=== PATIENT | male | born 2000 | race Caucasian/White ===

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

== ENCOUNTER 2023-04-06 14:09 | Emergency (ER) | payer MEDICAID, OTHER ==
[~2023-04-06] VITALS: Ht 180.3 cm; Wt 103.0 kg
[~2023-04-06 14:09] MED LIST: CETI10SG1 PO
[2023-04-06 14:11] VITALS: BP 141/101; PULSE 86; RESP 22; TEMP 97; O2SAT 98
[2023-04-06] MEDS ORDERED: LIDOCAINE 5% 1 EA PATCH TP ONE (14:40)
[2023-04-06] MEDS ORDERED: KETOROLAC 30 MG/ML VIAL IM ONE (14:40)
[2023-04-06] MEDS ORDERED: ALBUTEROL SULFATE/IPRATROPIU 3 ML SOL IH ONE (14:40)
[2023-04-06] MEDS ORDERED: LORazepam 1 MG TAB PO ONE (14:40)
[2023-04-06 14:47] VITALS: PULSE 78; RESP 24; O2SAT 99
--- NOTE | 2023-04-06 14:50 | NUR ---
RT AT BS EVALUATING PT, PERFORMING BREATHING TX ON PT.
[2023-04-06 15:45] LABS: BARBITURATE, URINE NEGATIVE ng/ml (NEG <=200); BENZODIAZEPINE, URINE NEGATIVE ng/mL (NEG <=200); CANNABINOID, URINE POSITIVE ng/mL (NEG <=50); COCAINE, URINE NEGATIVE ng/mL (NEG <=300); OPIATE, URINE NEGATIVE ng/mL (NEG <=2000); PHENCYCLIDINE SCREEN,URINE NEGATIVE ng/mL (NEG <=25)
--- NOTE | 2023-04-06 15:46 | NUR ---
AT RE-EVALUATING THE PT. PT STATED, THAT FEELS SO MUCH BETTER AFTER HE RECIEVED HIS BREATHING TREATMENT. DR. GONZALEZ TO CANCEL ALL ORDERS AND DISCHARGE PT HOME.
[2023-04-06] MEDS ORDERED: ATA10 PO (15:48)
[2023-04-06] MEDS ORDERED: ALBU0.0912 INH (15:48)
[2023-04-06 16:12] VITALS: BP 131/77; PULSE 73; RESP 17; TEMP 98.2; O2SAT 97
--- NOTE | 2023-04-06 16:12 | NUR ---
Patient discharged with v/s stable. Written and verbal after care instructions given and explained. Patient alert, oriented and verbalized understanding of instructions. Ambulatory with steady gait. All questions addressed prior to discharge. ID band removed. Patient advised to follow up with PMD. Rx of Albuterol and Atarax given. Patient educated on indication of medication including possible reaction and side effects. Opportunity to ask questions provided and answered. Pt instructed to return to the ER if his asthma/SOB starts to worsen or to call 911 for an emergency.
== END 2023-04-06 16:12 | disposition home or self-care (01) ==
LOC: MED 14:09
DX: R07.89 Other chest pain (principal); R06.02 Shortness of breath; J45.909 Unspecified asthma, uncomplicated; Z79.899 Other long term (current) drug therapy
CPT/HCPCS: 71045; 80305; 93005; 94640; 99285

== ENCOUNTER 2023-04-09 13:55 | Emergency (ER) | payer OTHER ==
[~2023-04-09 13:55] MED LIST changes: +ALBU0.0912 INH; +ATA10 PO
--- NOTE | 2023-04-09 14:16 | NUR ---
CALLED X 2. NO ANSWER.
--- NOTE | 2023-04-09 14:51 | NUR ---
AWAITED TO SEE IF PT WOULD RETURN. CALLED NUMEROUS TIMES.
== END 2023-04-09 14:16 | disposition left against medical advice (07) ==
LOC: MED 13:55
DX: R06.02 Shortness of breath (principal); Z53.21 Procedure and treatment not carried out due to patient leaving prior to being seen by health care provider

== ENCOUNTER 2023-04-14 13:16 | Emergency (ER) | payer OTHER ==
[~2023-04-14] VITALS: Ht 172.7 cm; Wt 102.5 kg
[2023-04-14 13:49] VITALS: BP 126/92; PULSE 91; RESP 28; TEMP 98; O2SAT 100
[2023-04-14] MEDS ORDERED: MECLIZINE 25 MG TAB PO ONE (14:15)
[2023-04-14] MEDS ORDERED: ALBUTEROL SULFATE/IPRATROPIU 3 ML SOL IH ONE (14:15)
[2023-04-14] MEDS ORDERED: ONDANSETRON 4 MG ODT PO ONE (14:15)
[2023-04-14] MEDS ORDERED: predniSONE 20 MG TAB PO ONE (14:15)
[2023-04-14 14:28] VITALS: PULSE 88; RESP 22; O2SAT 99
[2023-04-14 14:30] VITALS: PULSE 83; RESP 22
[2023-04-14 14:43] LABS: BASOPHILS % (AUTO) 0.4 % (0.0-2.0); EOSINOPHILS % (AUTO) 0.3 % (0.0-4.0); HEMATOCRIT 47.4 % (36-52); LYMPHOCYTES # (AUTO) 1.7 K/uL (2.0-11.5); LYMPHOCYTES % (AUTO) 17.9 % (20.5-51.1); MEAN CORPUSCULAR HEMOGLOBIN 28 pg (27-31); MEAN CORPUSCULAR HGB CONC 34 g/dL (33-37); MEAN CORPUSCULAR VOLUME 82.9 fL (80-94); MONOCYTES # (AUTO) 0.7 K/uL (0.8-1.0); MONOCYTES % (AUTO) 7.1 % (1.7-9.3); NEUTROPHILS # (AUTO) 7.2 K/uL (1.8-7.7); NEUTROPHILS % (AUTO) 74.3 % (42.2-75.2); PLATELET COUNT (AUTO) 380 K/uL (140-450); RED BLOOD CELL COUNT(AUTO) 5.73 MIL/uL (4.20-6.10); RED CELL DISTRIBUTION WIDTH 13.4 % (11.6-13.7); WHITE BLOOD COUNT (AUTO) 9.8 K/uL (4.5-11.0)
[2023-04-14 14:58] VITALS: BP 139/86; PULSE 81; RESP 20; O2SAT 97
[2023-04-14 14:59] LABS: ALANINE AMINOTRANSFERASE 24 U/L (12-78); ALBUMIN 4.2 g/dL (3.4-5.0); ALKALINE PHOSPHATASE 78 U/L (50-136); ANION GAP 17.1 (8-16); ASPARTATE AMINOTRANSFERASE 16 U/L (15-37); CALCIUM 9.1 mg/dL (8.5-10.1); CARBON DIOXIDE 23.6 mmol/L (21-32); CHLORIDE 105 mmol/L (98-107); CREATININE 0.9 mg/dL (0.6-1.3); GFR ARICAN-AMERICAN 138 mL/min (>90); GFR NON ARICAN-AMERICAN 114 mL/min (>90); GLUCOSE 107 mg/dL (74-106); POTASSIUM 3.7 mmol/L (3.5-5.1); SODIUM SERUM 142 mmol/L (136-145); TOTAL BILIRUBIN 0.7 mg/dL (0.0-1.0); TOTAL PROTEIN, SERUM 7.6 g/dL (6.4-8.2); UREA NITROGEN, BLOOD 7 mg/dL (7-18)
[2023-04-14] MEDS ORDERED: NACL 0.9% 1,000 ML IV ONE (15:00)
[2023-04-14] MEDS ORDERED: KETOROLAC 30 MG/ML VIAL IVP ONE (15:20)
[2023-04-14] MEDS ORDERED: ACET-10509 PO (16:19)
[2023-04-14] MEDS ORDERED: ALBU0.0912 INH (16:19)
[2023-04-14] MEDS ORDERED: NAPR-1704 PO (16:19)
[2023-04-14] MEDS ORDERED: PRED20TA5 PO (16:19)
[2023-04-14] MEDS ORDERED: DICL20GE TP (16:20)
[2023-04-14 16:35] VITALS: TEMP 98
== END 2023-04-14 16:35 | disposition home or self-care (01) ==
LOC: MED 13:16
DX: S29.019A Strain of muscle and tendon of unspecified wall of thorax, initial encounter (principal); J45.901 Unspecified asthma with (acute) exacerbation; F41.9 Anxiety disorder, unspecified; F12.90 Cannabis use, unspecified, uncomplicated; F17.210 Nicotine dependence, cigarettes, uncomplicated; Z71.6 Tobacco abuse counseling; Z79.899 Other long term (current) drug therapy; X58.XXXA Exposure to other specified factors, initial encounter; Y93.89 Activity, other specified; Y92.89 Other specified places as the place of occurrence of the external cause; Y99.8 Other external cause status
CPT/HCPCS: 36415; 71045; 80053; 84484; 85025; 93005; 94640; 94760; 96361; 96374; 99285; J1885; J7512; J8597; Q0092; Q0162

== ENCOUNTER 2023-04-23 18:40 | Emergency (ER) | payer OTHER ==
[~2023-04-23] VITALS: Ht 177.8 cm; Wt 97.5 kg
[~2023-04-23 18:40] MED LIST changes: +ACET-10509 PO; +DICL20GE TP; +NAPR-1704 PO; +PRED20TA5 PO
[2023-04-23 18:44] VITALS: BP 140/94; PULSE 90; RESP 20; TEMP 98; O2SAT 100
[2023-04-23] MEDS ORDERED: IBUPROFEN 600 MG TAB PO ONE (18:55)
[2023-04-23 19:21] LABS: BASOPHILS # (AUTO) 0.1 K/uL (0.00-0.22); BASOPHILS % (AUTO) 0.4 % (0.0-2.0); EOSINOPHILS % (AUTO) 0.3 % (0.0-4.0); HEMATOCRIT 44.8 % (36-52); HEMOGLOBIN 15.1 g/dL (12.0-18.0); LYMPHOCYTES # (AUTO) 1.6 K/uL (2.0-11.5); LYMPHOCYTES % (AUTO) 14.2 % (20.5-51.1); MEAN CORPUSCULAR HEMOGLOBIN 28 pg (27-31); MEAN CORPUSCULAR HGB CONC 34 g/dL (33-37); MEAN CORPUSCULAR VOLUME 83.3 fL (80-94); MONOCYTES % (AUTO) 8.3 % (1.7-9.3); NEUTROPHILS # (AUTO) 8.9 K/uL (1.8-7.7); NEUTROPHILS % (AUTO) 76.8 % (42.2-75.2); PLATELET COUNT (AUTO) 336 K/uL (140-450); RED BLOOD CELL COUNT(AUTO) 5.38 MIL/uL (4.20-6.10); RED CELL DISTRIBUTION WIDTH 13.3 % (11.6-13.7); WHITE BLOOD COUNT (AUTO) 11.6 K/uL (4.5-11.0)
[2023-04-23 19:51] LABS: ALANINE AMINOTRANSFERASE 55 U/L (12-78); ALBUMIN 3.7 g/dL (3.4-5.0); ALKALINE PHOSPHATASE 92 U/L (50-136); ANION GAP 15.4 (8-16); ASPARTATE AMINOTRANSFERASE 27 U/L (15-37); CALCIUM 8.7 mg/dL (8.5-10.1); CHLORIDE 105 mmol/L (98-107); CREATININE 0.8 mg/dL (0.6-1.3); GFR ARICAN-AMERICAN 158 mL/min (>90); GFR NON ARICAN-AMERICAN 131 mL/min (>90); GLUCOSE 112 mg/dL (74-106); POTASSIUM 3.4 mmol/L (3.5-5.1); SODIUM SERUM 141 mmol/L (136-145); TOTAL BILIRUBIN 0.6 mg/dL (0.0-1.0); TOTAL PROTEIN, SERUM 7.3 g/dL (6.4-8.2); UREA NITROGEN, BLOOD 8 mg/dL (7-18)
[2023-04-23 20:35] LABS: FLU A ANTIGEN negative (NEGATIVE); FLU B ANTIGEN NEGATIVE (NEGATIVE)
[2023-04-23] MEDS ORDERED: PRED20TA5 PO (21:21)
[2023-04-23] MEDS ORDERED: IBUP-2213 PO (21:21)
[2023-04-23 21:35] VITALS: BP 131/79; PULSE 84; RESP 17; TEMP 98.3; O2SAT 100
== END 2023-04-23 21:35 | disposition home or self-care (01) ==
LOC: MED 18:40
DX: R07.9 Chest pain, unspecified (principal); Z20.822 Contact with and (suspected) exposure to COVID-19; J45.909 Unspecified asthma, uncomplicated; F17.210 Nicotine dependence, cigarettes, uncomplicated; Z79.899 Other long term (current) drug therapy; Z71.6 Tobacco abuse counseling
CPT/HCPCS: 36415; 71045; 80053; 84484; 85025; 85379; 87426; 87804; 99284; Q0092

== ENCOUNTER 2023-04-29 17:43 | Emergency (ER) | payer OTHER ==
[~2023-04-29] VITALS: Ht 177.8 cm; Wt 97.5 kg
[2023-04-29 17:43] VITALS: BP 131/91; PULSE 77; RESP 18; TEMP 98.6; O2SAT 98
[~2023-04-29 17:43] MED LIST changes: +IBUP-2213 PO
[2023-04-29] MEDS ORDERED: predniSONE 20 MG TAB PO ONE (17:45)
[2023-04-29] MEDS ORDERED: ALBUTEROL SULFATE/IPRATROPIU 3 ML SOL IH ONE (17:45)
[2023-04-29 18:05] VITALS: PULSE 80; RESP 18; O2SAT 100
[2023-04-29 19:00] LABS: BASOPHILS % (AUTO) 0.3 % (0.0-2.0); EOSINOPHILS # (AUTO) 0.1 K/uL (0-0.4); EOSINOPHILS % (AUTO) 1.1 % (0.0-4.0); HEMATOCRIT 43.8 % (36-52); HEMOGLOBIN 14.5 g/dL (12.0-18.0); LYMPHOCYTES # (AUTO) 2.2 K/uL (2.0-11.5); MEAN CORPUSCULAR HEMOGLOBIN 28 pg (27-31); MEAN CORPUSCULAR HGB CONC 33 g/dL (33-37); MONOCYTES % (AUTO) 7.5 % (1.7-9.3); NEUTROPHILS # (AUTO) 9.4 K/uL (1.8-7.7); NEUTROPHILS % (AUTO) 74.1 % (42.2-75.2); PLATELET COUNT (AUTO) 375 K/uL (140-450); RED BLOOD CELL COUNT(AUTO) 5.28 MIL/uL (4.20-6.10); RED CELL DISTRIBUTION WIDTH 13.3 % (11.6-13.7); WHITE BLOOD COUNT (AUTO) 12.7 K/uL (4.5-11.0)
[2023-04-29 19:18] LABS: ALBUMIN 3.7 g/dL (3.4-5.0); ANION GAP 11.4 (8-16); CALCIUM 8.8 mg/dL (8.5-10.1); CREATININE 0.7 mg/dL (0.6-1.3); POTASSIUM 3.4 mmol/L (3.5-5.1); TOTAL BILIRUBIN 0.7 mg/dL (0.0-1.0); TOTAL PROTEIN, SERUM 7.2 g/dL (6.4-8.2)
[2023-04-29 20:10] LABS: AMPHETAMINE, URINE NEGATIVE ng/ml (NEG <=1000); BARBITURATE, URINE NEGATIVE ng/ml (NEG <=200); BENZODIAZEPINE, URINE NEGATIVE ng/mL (NEG <=200); CANNABINOID, URINE POSITIVE ng/mL (NEG <=50); COCAINE, URINE NEGATIVE ng/mL (NEG <=300); OPIATE, URINE NEGATIVE ng/mL (NEG <=2000); PHENCYCLIDINE SCREEN,URINE NEGATIVE ng/mL (NEG <=25)
[2023-04-29 21:34] VITALS: BP 121/74; PULSE 89; RESP 18; TEMP 97.3; O2SAT 98
[2023-04-29] MEDS ORDERED: NAPR-54 PO (21:53)
== END 2023-04-29 22:01 | disposition home or self-care (01) ==
LOC: MED 17:43
DX: F41.9 Anxiety disorder, unspecified (principal); R07.89 Other chest pain; J45.909 Unspecified asthma, uncomplicated; Z79.899 Other long term (current) drug therapy
CPT/HCPCS: 36415; 71045; 80053; 80305; 83880; 84484; 85025; 85379; 93005; 94640; 99285; J7512